=== PATIENT | male | born 1995 | race Caucasian/White ===

== ENCOUNTER 2017-07-12 04:01 | Emergency (ER) | payer OTHER ==
[~2017-07-12] VITALS: Ht 177.8 cm; Wt 104.3 kg
[2017-07-12 04:01] VITALS: BP_SYST 152
--- NOTE | 2017-07-12 04:01 | NUR ---
Patient to [facility] for evaluation. Side rails up. Report given to MARLENY CALLES.
--- NOTE | 2017-07-12 04:03 | NUR ---
Patient brought to ED by P, ambulatory with handcuffs for blood alcohol withdrawal.
--- NOTE | 2017-07-12 04:15 | NUR ---
Written and verbal consent obtained from patient for blood alcohol, name and verified by patient. Disinfected patient's skin with iodine that did not contain alcohol or other volatile organic compound. Collected the blood from the subject named by venipuncture, in the presence of Officer Kali #[id number]. Used a sterile, dry hypodermic needle and dry vacuum blood collection. The dry vacuum blood collection was supplied by the officer named above. Withdrew a specimen of blood from left AC of the subject named above. Inverted the blood tube several times to ensure that the preservative and anticoagulant were thoroughly mixed in the blood specimen. I initialed the blood tube label for identification. The labeled blood tube was handed directly to the Officer named above. The blood tube stopper remained in place while I had possession of the blood tube. The Officer placed tube into envelope and sealed it in my presence. Envelope initialed by myself and Officer named above. Patient tolerated well, bandage applied, and bleeding controlled.
--- NOTE | 2017-07-12 04:21 | NUR ---
Patient discharged in [facility] custody, ambulatory with handcuffs.
== END 2017-07-12 04:21 ==
LOC: SED 04:01
DX: Z02.89 Encounter for other administrative examinations (principal)
CPT/HCPCS: 99283